=== PATIENT | female | born 2000 | race Caucasian/White ===

== ENCOUNTER 2022-04-11 23:13 | Emergency (ER) | payer SELFPAY ==
[~2022-04-11] VITALS: Ht 154.9 cm; Wt 77.1 kg
[2022-04-11 23:32] VITALS: BP 124/68
--- NOTE | 2022-04-11 23:40 | NUR ---
Patient ambulated to bed 2.
[2022-04-11 23:50] VITALS: BP 124/68
[2022-04-11] MEDS ORDERED: ACETAMINOPHEN EXTRA STRENGTH 500 MG TAB PO ONE (23:50)
--- NOTE | 2022-04-12 | NUR ---
MD PARK ASSESSING PATIENT
--- NOTE | 2022-04-12 | NUR ---
21/F BIB SELF C/O LOWER BACK PAIN X1WEEK. 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 PATIENT STATED THAT SHE IS HAVING DIFFICULTY WALKING BECAUSE OF THE PAIN. STATED THAT SHE HAS CONSTANT PAIN 8/10 AND SHARP. DENIES SOB, CP, D/N/C/V AT THIS TIME. PMHX DENIES MEDS DENIES NKA
[2022-04-12] MEDS ORDERED: ACET-10509 PO (01:04)
[2022-04-12] MEDS ORDERED: ACETAMINOPHEN EXTRA STRENGTH 500 MG TAB PO ONE (01:10)
--- NOTE | 2022-04-12 01:20 | NUR ---
The patient's care was reviewed and supervised by Adrienne Cardoso RN.
--- NOTE | 2022-04-12 01:20 | NUR ---
Patient discharged with v/s stable. Written and verbal after care instructions given Back pain and explained. Patient alert, oriented and verbalized understanding of instructions. Ambulatory with steady gait. All questions addressed prior to discharge. ID band removed. Patient advised to follow up with PMD. Rx of Tylenol given.
== END 2022-04-12 01:20 | disposition home or self-care (01) ==
LOC: MED 23:13
DX: M54.6 Pain in thoracic spine (principal); W06.XXXA Fall from bed, initial encounter; Y93.89 Activity, other specified; Y92.89 Other specified places as the place of occurrence of the external cause; Y99.8 Other external cause status
CPT/HCPCS: 72072; 99283

== ENCOUNTER 2023-10-06 17:41 | Emergency (ER) | payer BC ==
[~2023-10-06] VITALS: Ht 154.9 cm; Wt 81.6 kg
[~2023-10-06 17:41] MED LIST: ACET-10509 PO
[2023-10-06 18:09] VITALS: BP 123/76; PULSE 98; RESP 18; TEMP 98; O2SAT 97
[2023-10-06 18:38] VITALS: BP 123/76; PULSE 98; RESP 18; TEMP 98
[2023-10-06] MEDS ORDERED: ONDANSETRON 4 MG/2 ML VIAL IVP ONE (18:50)
[2023-10-06] MEDS ORDERED: LOPERAMIDE 2 MG CAP PO ONE (18:50)
[2023-10-06] MEDS ORDERED: FAMOTIDINE 20 MG/2 ML VIAL IVP ONE (18:50)
[2023-10-06] MEDS ORDERED: NACL 0.9% 1,000 ML IV SCH (18:50)
[2023-10-06 18:58] LABS: FLU A ANTIGEN negative (NEGATIVE); FLU B ANTIGEN negative (NEGATIVE)
[2023-10-06 18:59] LABS: APPEARANCE,URINE CLEAR (CLEAR); BILIRUBIN,URINE NEGATIVE (NEGATIVE); BLOOD, URINE NEGATIVE (NEGATIVE); COLOR,URINE YELLOW (YELLOW); LEUKOCYTE ESTERASE ,URINE NEGATIVE (NEGATIVE); NITRITE, URINE NEGATIVE (NEGATIVE); PROTEIN,URINE NEGATIVE (NEGATIVE); UGLUCOSE NEGATIVE (NEGATIVE); UROBILINOGEN,URINE 0.2 EU/dL (0.2 - 1)
[2023-10-06 19:34] VITALS: O2SAT 97
[2023-10-06 19:52] LABS: ALBUMIN 4.1 g/dL (3.4-5.0); ANION GAP 14.4 (8-16); CALCIUM 8.5 mg/dL (8.5-10.1); CARBON DIOXIDE 21.5 mmol/L (21-32); CREATININE 0.8 mg/dL (0.6-1.3); POTASSIUM 3.9 mmol/L (3.5-5.1); TOTAL BILIRUBIN 0.7 mg/dL (0.0-1.0)
[2023-10-06 20:11] LABS: BASOPHILS % (AUTO) 0.2 % (0.0-2.0); EOSINOPHILS % (AUTO) 0.1 % (0.0-4.0); HEMATOCRIT 36.3 % (36-48); HEMOGLOBIN 12.4 g/dL (12.0-16.0); MEAN CORPUSCULAR HEMOGLOBIN 30 pg (27-31); MEAN CORPUSCULAR HGB CONC 34 g/dL (33-37); MEAN CORPUSCULAR VOLUME 88.4 fL (80-94); MONOCYTES # (AUTO) 0.6 K/uL (0.8-1.0); MONOCYTES % (AUTO) 3.4 % (1.7-9.3); NEUTROPHILS % (AUTO) 90.3 % (42.2-75.2); PLATELET COUNT (AUTO) 338 K/uL (140-450); RED BLOOD CELL COUNT(AUTO) 4.11 MIL/uL (4.20-5.40); RED CELL DISTRIBUTION WIDTH 12.1 % (11.6-13.7); WHITE BLOOD COUNT (AUTO) 16.7 K/uL (4.8-10.8)
[2023-10-06] MEDS ORDERED: FAMO-347 PO (20:53)
[2023-10-06] MEDS ORDERED: LOPE-289 PO (20:53)
[2023-10-06] MEDS ORDERED: ONDA-188 SL (20:53)
[2023-10-06] MEDS ORDERED: KETOROLAC 30 MG/ML VIAL IVP ONE (20:55)
== END 2023-10-06 21:13 | disposition home or self-care (01) ==
LOC: MED 17:41
DX: R10.13 Epigastric pain (principal); R11.2 Nausea with vomiting, unspecified; R19.7 Diarrhea, unspecified; Z20.822 Contact with and (suspected) exposure to COVID-19; Z79.899 Other long term (current) drug therapy
CPT/HCPCS: 36415; 80053; 81003; 81025; 83690; 84703; 85025; 87426; 87804; 96361; 96374; 96375; 99284; J1885; J2405; J3490; J7030